=== PATIENT | female | born 1955 | race Hispanic/Latino ===

== ENCOUNTER → 2024-12-10 | Outpatient (CLI) | payer OTHER, MEDICARE ==
[~2024-12-10] MED LIST: GADOTERATE MEGLUMINE 10 MMOL/20 ML VIAL IV ONE
--- NOTE | 2024-12-10 14:40 | HMCIMG ---
MR ABDOMEN W/WO CON HISTORY: Localized swelling COMPARISON: None TECHNIQUE: MRI of the abdomen was performed utilizing multiple pulse sequences in axial, coronal and sagittal planes. Patient was given 18 cc of Clariscan through intravenous route. FINDINGS: No pleural effusion is seen bilaterally. Liver measures 14 cm. The study is limited due to motion artifacts. Spleen measures 10 cm. Both kidneys are seen without hydronephrosis. Adrenal glands are unremarkable. Pancreas poorly seen. Over the region of interest in the right lower anterior abdominal wall, there is 9.8 x 5.6 cm multiloculated fat lobules may be related to lipoma. IMPRESSION: 1. Over the region of interest in the right lower anterior abdominal wall, there is 9.8 x 5.6 cm multiloculated fat lobules may be related to lipoma. No abnormal enhancement is seen.
== END | disposition home or self-care (01) ==
LOC: RAH 08:26
PROVIDERS: ATTEND Student in an Organized Health Care Education/Training Program
DX: K76.89 Other specified diseases of liver (principal); K86.89 Other specified diseases of pancreas; R22.2 Localized swelling, mass and lump, trunk; D17.79 Benign lipomatous neoplasm of other sites
CPT/HCPCS: 74183; A9575